=== PATIENT | male | born 1940 | race Caucasian/White ===

== ENCOUNTER 2016-07-24 09:27 | Day surgery (SDC) | payer MEDICARE ==
[~2016-07-24 09:27] MED LIST: BUPIVACAINE-EPI 0.5%-1:200000 50 ML VIAL. ONE; DEXAMETHASONE SOD PHOS 20 MG/5 ML VIAL. ONE; DOCU100C5 PO; ENOX40DI SQ; FAMO40TA4 PO; FAMOTIDINE 20 MG/2 ML VIAL ONE; FERR-26 PO; HEPARIN SODIUM 5,000 UNIT in IV NORMAL SALINE 500ML BAG 500 ML IRR ONE; HEPARIN for IV BOLUS 10,000 UNIT/10 ML VIAL. ONE; HYDROmorphone 2 MG/ML VIAL IV PRN; IV RINGERS,LACTATED 1000ML 1,000 ML IV SCH; LIDOCAINE 1% 1 ML SYRINGE. ID PRN; LIDOCAINE 2% PF Vial for OR 5 ML VIAL. ONE; MIRT15TA3 PO; MORPHINE SULFATE 2 MG/ML DISP.SYRIN. IV PRN; OLME20TA PO; ONDA8TAB9 PO; ONDANSETRON PF 4 MG/2 ML VIAL. IV PRN; ONDANSETRON PF 4 MG/2 ML VIAL. ONE; OXYC-323 PO; PANT40TA5 PO; PRAV40TA2 PO; PROCHLORPERAZINE 10 MG/2 ML VIAL. IV PRN; PROPOFOL 20 ML IV ONE; ROPI1TAB PO; TEMA15CA PO; fentaNYL PF VIAL 100 MCG/2 ML VIAL IV PRN
[2016-07-24] MEDS ORDERED: fentaNYL PF VIAL 100 MCG/2 ML VIAL ONE (12:38)
[2016-07-24] MEDS ORDERED: DESFLURANE 31 TO 60 MINUTES IH ONE (13:34)
--- NOTE | 2016-07-24 13:52 | PDOC ---
BRIEF OPERATIVE NOTE Pre-Op Diagnosis gastric cancer placement of right IJ port a cath with u/s and fluoro k armin gen ebl 5 ivf 600 maxim well to rr stable. #[id number] KISHOR DILL MD July 24, 2016 13:52
--- NOTE | 2016-07-24 14:06 | RAD ---
Indication status post Port-A-Cath placement. Assess for potential complication. A single view of the chest was obtained. Comparison is made to an examination 11/01/2009. The heart and pulmonary vessels appear unremarkable. There is a calcified granuloma in the right lung. There is no acute parenchymal infiltrate. A right Port-A-Cath is noted. The tip appears appropriately positioned. No complication is seen associated with the catheter placement and specifically no pneumothorax is seen. IMPRESSION: No acute finding. Right Port-A-Cath. No complication seen
--- NOTE | 2016-07-24 14:46 | OP ---
DATE OF SURGERY: 07/24/2016 PREOPERATIVE DIAGNOSIS: Gastric cancer. POSTOPERATIVE DIAGNOSIS: Gastric cancer. PROCEDURES: 1. Placement of right internal jugular Port-A-Cath. 2. Intraoperative use of fluoroscopy. 3. Ultrasound-guided venous access. SURGEON: Kishor Dill MD ANESTHESIA: General. ESTIMATED BLOOD LOSS: 5 mL. IV FLUIDS: 600 mL. INDICATIONS: The patient is a 76-year-old male who has metastatic cancer. He is here for Port-A-Cath placement so that he can start palliative chemotherapy. DESCRIPTION OF PROCEDURE: After informed consent was obtained, the patient was taken to the operating room and placed in supine position. After adequate induction of general anesthesia, he was prepped and draped in usual sterile fashion. He was placed in Trendelenburg position and then his right IJ was visualized with ultrasound-guidance. The right IJ was accessed with the Cook needle, was accessed from the first attempt. Venous blood was aspirated easily into the syringe. The syringe was removed. A small wire and advanced through the needle. Fluoroscopy was then used to confirm that the wire advanced on the right side of the heart. The needle was removed and then the tract dilated up with the small dilator and sheath that comes with the kit. Following this, the wire was removed and the larger wire was advanced through the percutaneous dilator and sheath. The dilator and sheath were removed leaving the larger guidewire in place. The guidewire was clamped to the drape with a hemostat. Fluoroscopy was used to confirm that the placement of the guidewire was correct. Local was injected from the right chest to the right neck and a skin incision was made over the guidewire and the right neck as well as on the right chest. Cautery was then used to create subcutaneous pocket on the right chest for the port placement. The catheter was then tunneled from the right neck to the right chest. It was allowed to lie on a sterile blue towel so that the catheter did not come in contacted with the skin at any point during this procedure. A bit larger dilator and sheath were passed over the guidewire under direct fluoroscopic vision. The guidewire slid back and forth easily throughout passage of the dilator and sheath. The guidewire and dilator were removed leaving the sheath in place. The catheter was inserted through the sheath. The sheath was split and removed. The patient was placed flat and the catheter was then slowly withdrawn under fluoroscopy until it was in the distal SVC. The catheter was cut at 23.5 cm. It was attached to the port and then the collar was slid down over the port-catheter junction. The port was placed in a sterile blue towel, was aspirated, venous blood aspirated easily. It was then flushed with dilute heparinized saline of approximately 10 units of heparin per mL of saline. There is no extravasation of the port-catheter junction. At this point, the port was placed in the subcutaneous pocket. It was sutured to the chest wall with 2-0 Prolene suture x 2. The port was accessed, venous blood aspirated easily. It was flushed again with dilute heparinized saline and then final flush of 1000 units per mL with a total of 2 mL used to lock the catheter. The wounds were hemostatic. They were closed. The dermal subdermal layer was closed with a 3-0 Vicryl in a running fashion. Skin was closed with 4-0 Monocryl in subcuticular fashion. Neck incision was closed with 4-0 Monocryl in subcuticular fashion. Sterile dressings were placed, which consisted of Dermabond and Steri-Strips. He tolerated the procedure well. There were no apparent complications. He was then transferred in stable condition to recovery room. A chest x-ray has been ordered. KISHOR DILL MD DR: OBDULIO/radha JOB#: [id number] / [id number] LAINE
[2016-07-24 15:30] VITALS: BP 107/64
== END 2016-07-24 15:45 | disposition home or self-care (01) ==
LOC: SURG 09:27
PROVIDERS: ATTEND Surgery
DX: C16.9 Malignant neoplasm of stomach, unspecified (principal); E78.00 Pure hypercholesterolemia, unspecified; I10 Essential (primary) hypertension; D64.9 Anemia, unspecified; Z87.442 Personal history of urinary calculi; Z88.3 Allergy status to other anti-infective agents
CPT/HCPCS: 36561; 71010; C1769; C1788; J0690; J1100; J2405; J2704; J3010; J7040; S0028; 36556